=== PATIENT | male | born 1955 | race Asian ===

== ENCOUNTER 2017-09-14 12:49 | Outpatient (CLI) | payer BC | END 2017-09-14 12:50 | disposition home or self-care (01) | LOC: BICMAMMO 12:49 | PROVIDERS: ATTEND Internal Medicine Gastroenterology | DX: Z13.820 Encounter for screening for osteoporosis (principal); Z12.11 Encounter for screening for malignant neoplasm of colon; Z12.12 Encounter for screening for malignant neoplasm of rectum; M85.852 Other specified disorders of bone density and structure, left thigh | CPT/HCPCS: 77080; 82274 ==